=== PATIENT | female | born 1940 | race Caucasian/White ===

== ENCOUNTER 2017-01-11 15:20 | Inpatient (IN) ==
[2017-01-11] MEDS ORDERED: ATROPINE 1 MG/10 ML SYRINGE ONE (15:28)
[2017-01-11] MEDS ORDERED: AMIODARONE 150 MG/3 ML VIAL ONE (15:28)
[2017-01-11] MEDS ORDERED: SODIUM CHLORIDE 0.9% 500 ML IV STA (15:43)
[2017-01-11] MEDS ORDERED: MAGNESIUM SULF RIDER 2 GM in PREMIX 1 EACH IV PRN (15:53)
[2017-01-11] MEDS ORDERED: POTASSIUM CHLORIDE 20 MEQ TABLET PO PRN (15:53)
[2017-01-11 15:58] LABS: Basophils # 0.1 10*3/uL (0.0-0.2); Basophils % 0.4 % (0.0-0.8); Eosinophils % 0.3 % (0.00-10.9); Hematocrit 49.3 VOL% (35.7-47.0); Hemoglobin 17.1 GM/DL (12.0-16.0); Immature Granulocytes % 0.5 %; Immature Granulocytes Absolute 0.06 #; Lymphocytes % 18.1 % (21.3-54.2); Mean Corpuscular HGB Conc 34.7 GM/DL (32-36); Mean Corpuscular Hemoglobin 31 PG (27-34); Mean Corpuscular Volume 88.7 FL (87-102); Mean Platelet Volume 10.8 FL (9.6-12.0); Monocytes # 0.9 10*3/uL (0.11-0.8); Monocytes % 7.9 % (1.7-12.7); Neutrophils # 8.2 10*3/uL (1.4-7.4); Neutrophils % 72.8 % (38.7-73.9); Platelet Count 165 T/CUMM (130-400); Red Blood Count 5.56 MC/CUMM (3.8-5.5); Red Cell Distribution Width 12.4 % (9.3-17.3); White Blood Count 11.2 T/CUMM (4-12)
[2017-01-11] MEDS ORDERED: SODIUM CHLORIDE 0.45% 1,000 ML IV SCH (16:00)
--- NOTE | 2017-01-11 16:02 | Cardiology History & Physical ---
Assessment and Plan - Time spent with patient Time spent with patient: Greater than 30 minutes Time spent discussing smoking cessation with patient: 3 to 10 minutes (1) Second-degree heart block Status: Acute Assessment and plan: SEE PLAN OF CARE LISTED BELOW Current Visit: Yes (2) Torsades de pointes Status: Acute Assessment and plan: SEE PLAN OF CARE LISTED BELOW Current Visit: Yes (3) CAD (coronary artery disease) Status: Chronic Assessment and plan: SEE PLAN OF CARE LISTED BELOW Current Visit: Yes (4) Hypertension Status: Chronic Assessment and plan: SEE PLAN OF CARE LISTED BELOW Current Visit: Yes (5) Dyslipidemia Status: Chronic Assessment and plan: SEE PLAN OF CARE LISTED BELOW Current Visit: Yes (6) Hypokalemia Status: Acute Assessment and plan: SEE PLAN OF CARE LISTED BELOW Current Visit: Yes (7) Debilitated patient Status: Acute Assessment and plan: SEE PLAN OF CARE LISTED BELOW Current Visit: Yes (8) Tobacco use Status: Chronic Assessment and plan: SEE PLAN OF CARE LISTED BELOW Current Visit: Yes (9) Chronic pain Status: Chronic Assessment and plan: SEE PLAN OF CARE LISTED BELOW Current Visit: Yes (10) Spinal stenosis Status: Chronic Assessment and plan: SEE PLAN OF CARE LISTED BELOW Current Visit: Yes (11) Tobacco abuse Status: Chronic Assessment and plan: SEE PLAN OF CARE LISTED BELOW Current Visit: Yes History of Present Illness Chief complaint: syncope, vfib arrest 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 GONSALEZ BUT CURRENT APPOINTMENT WITH DR. HONG Patient is being seen in the emergency department Ms. Shelby,[id number], with risk factors significant for: age, known CAD, hypertension, dyslipidemia, tobaccoism, sedentary lifestyle. History of anxiety , chronic pain, hypokalemia. August 1994 CABG (DICKEY to LAD). Last cardiac catheterization May 07, 2012: Significant 2 vessel CAD (old occluded ostial LAD, new significant disease in the proximal RCA which required PCI with MING). DICKEY to LAD patent, EF 55%. Patient was brought to the ED after EMS was summoned for "seizure activity". Patient does not have a history of seizures. Telemetry strips from EMS reveal high degree block and bradycardia. Immediately after arrival to the ED, patient experienced ventricular fibrillation/torsades arrest. She received two precordial thumps which did not convert the patient however she spontaneously converted back to normal sinus rhythm. She was found to be hypokalemic ( potassium 3.0), magnesium WNL. She denies chest pain, heaviness or tightness. Family is at the bedside and agree that she has had been having no complaints of these type symptoms. She does have severe spinal stenosis and is non-ambulatory because of this condition. She previously saw Dr. Gonsalez but was dismissed from his care several years ago. She has not followed up with any healthcare provider with the exception of Dr. Almas Rosa for pain management. She does have a Morphine pump located in her abdomen and takes [place] 3 times daily as needed. She does acknowledge having "dizzy spells" for 3 days prior to arrival. Specifically, over the past 24 hours she had several spells of falling due to severe weakness, dizziness. And as the patient was being prepared for transport to the CCU, experienced numerous episodes of bradycardia induced torsades responding to to precordial thumps. She is being taken emergently to cardiac catheterization lab for pacemaker implantation by Dr. Hong. IMPRESSION/PLAN: 1. BRADYCARDIA INDUCED TORSADES - patient is being taken emergently to cardiac catheterization lab for pacemaker implant 2. SYNCOPE - most likely related to arrhythmia. 3. KNOWN CAD - see above for additional information related to her coronary anatomy and interventions. She does take Aspirin daily and did take this morning. Has not received Lovenox as she has no complaints of chest pain, troponin negative and she is being urgently taken to laboratory clerk. 4. HYPERTENSION - will adjust medications accordingly during hospital stay 5. DYSLIPIDEMIA - fasting lipid profile in the morning. LFTs today. Statin the same 6. HYPOKALEMIA - in the process of being replaced. Will continue to daily monitor and adjust meds accordingly 7. CHRONIC PAIN - patient does have a morphine pump. May consult pain management if needed for management. 8. NON-COMPLIANCE - prior history of noncompliance. Will reiterate to the family and to the patient importance of continued follow-up 9. SPINAL STENOSIS, SEVERE - patient is debilitated from her severe stenosis. Pain control is important. May be candidate for swing bed at discharge. 10. TOBACCO USE -greater than 5 minutes today was spent discussing the merits of tobacco cessation Home Medications Medication Instructions Recorded Confirmed Type Hydrocodone/Acetaminophen [[place] 1 each PO TID PRN 01/11/17 01/11/17 History 10-325 Tablet] Allergies Allergy/AdvReac Type Severity Reaction Status Date / Time pentazocine [From Talwin] Allergy Hallucinati Verified 01/11/17 15:50 ng Review of systems: REVIEW OF SYSTEMS: See HPI - Constitutional Constitutional: Present: Syncope. Fatigue. Absent: anorexia, night sweats - EENT Eyes: Absent: blurry vision, loss of vision, diplopia Ears: Absent: decreased hearing, ear pain, ear discharge - Cardiovascular Cardiovascular: Denies: chest pain with exertion, dyspnea, edema, palpitations. Absent: chest pain with deep breath - Respiratory Respiratory: Denies: BURG[place], cough. Absent: wheezing, hemoptysis, change in phlegm color - Gastrointestinal Gastrointestinal: Denies: constipation. Absent: abdominal pain, hematemesis, hematochezia, melena, change in bowel habits, nausea - Genitourinary Genitourinary: Absent: difficulty urinating, dysuria, urinary hesitancy, flank pain - Musculoskeletal Musculoskeletal: Present: back pain, muscle weakness absent: joint swelling, muscle cramps, muscle weakness - Neurological Neurological: Present: Poor gait with frequent falls. Dizziness. Absent: hemiparesis - Psychiatric Psychiatric: Present: Anxiety. Absent: depression, difficulty concentrating - Endocrine Endocrine: Present: fatigue. Absent: cold intolerance, heat intolerance, polyuria, polyphagia, polydipsia - Hematologic/Lymphatic Hematologic/Lymphatic: Present: easy bruising. Absent: easy bleeding -Integumentary Integumentary: Absent: lesions, rashes, skin breakdown Medical,Surgical,& Family Hx - Medical History Cardio: History of: CAD, Hypertension, [place], Cardiovascular Problems (bypass surgery) Psychological: History of: Anxiety Disorders Musculoskeletal: History of: Musculoskeletal Problems (chronic pain) - Social History Smoking Status: Current every day smoker Have you smoked in the last 12 months: Yes Frequency of Alcohol Use: None Type of Drug Use: None Marital Status: Lives With:: Spouse Functional capacity: wheelchair bound Cardiology Physical Exam - Constitutional Vitals: Vital Signs Temp Pulse Resp BP Pulse Ox 96.3 F L 69 16 125/89 96 01/11/17 15:30 01/11/17 15:30 01/11/17 15:30 01/11/17 15:30 01/11/17 15:30 Intake and Output 01/11/17 01/11/17 01/11/17 07:59 15:59 23:59 Other: Weight 58.967 kg Patient Weight 01/11/17 23:59 Weight 58.967 kg Exam: General: [Frail, debilitated female who appears to be very uncomfortable ] HEENT: [PERRL, normocephalic, atraumatic. Mucous membranes moist. No jaundice noted. Conjunctiva moist and clear, sclerae anicteric] Neck: No JVD/HJR, no thyromegaly or lymphadenopathy noted. No carotid bruit appreciated Cardiac: [Regular rate and rhythm.] [No obvious murmur rub or gallop.] Lungs: [Clear to auscultation without accessory muscle use to assist the respiratory pattern.] Oxygen in use via nasal cannula Abdomen: Soft, bowel sounds normoactive. Nontender and nondistended. No abdominal bruit or thrill noted. Musculoskeletal: No fluid collection. Decreased range of motion is noted. Severe deformity of the spine Noted Extremities: No clubbing, cyanosis noted. [ No edema noted.] Upper extremity pulses 2+. Lower extremity pulses 2+. Capillary refill less than 3 seconds. Skin: No unusual lesions or rashes. No skin breakdown appreciated. Neuro: Awake, alert and oriented 3. Moves all extremities well without hemiparesis or paralysis but overall muscle weakness noted. No essential tremor is appreciated. Result/EKG - Labs CBC & BMP: 01/11/17 15:42 01/11/17 15:43 Lab Results: I have reviewed the past 24 hour labs Labs: Laboratory Results - last 24 hr 01/11/17 15:42 WBC 11.2 RBC 5.56 H Hgb 17.1 H Hct 49.3 H MCV 88.7 MCH 31 MCHC 34.7 RDW 12.4 Plt Count 165 MPV 10.8 Neut % (Auto) 72.8 Lymph % (Auto) 18.1 L [place] % (Auto) 7.9 Eos % (Auto) 0.3 Baso % (Auto) 0.4 Neut # (Auto) 8.2 H Lymph # (Auto) 2.0 [place] # (Auto) 0.9 H Eos # (Auto) 0.0 Baso # (Auto) 0.1 Immature Gran % 0.5 Nucleated RBC % 0.0 Immature Gran # 0.06 Nucleated RBCs # 0.00 Immature Plt Fraction 0.0 - Diagnostic Findings Procedure: Chest x-ray: report reviewed by me - EKG EKG results: interpreted by oh EKG shows: bradycardia (Ventricular fibrillation/torsades. Second-degree block type)
[2017-01-11 16:03] LABS: INR 1.1; PT Patient Result 11.5 SECS
[2017-01-11 16:13] LABS: Albumin 3.9 G/DL (3.4-5.0); Bilirubin,Total 0.9 MG/DL (0.2-1.0); Calcium 9.3 MG/DL (8.5-10.1); Magnesium 2.6 MG/DL (1.8-2.4); Osmolality,Calculated 267.2 MOS/KG (273-304); Total Protein 8.2 G/DL (6.4-8.3); Troponin I Only 0.043 NG/ML (0.00-0.045)
[2017-01-11] MEDS ORDERED: POTASSIUM CHLORIDE 20 MEQ TABLET PO STA (16:30)
[2017-01-11 16:45] LABS: Apearance,Urine CLOUDY (Clear); Bacteria,Urine Many /HPF (Few); Bilirubin,Urine Negative (Negative); Blood, Urine Small mg/dL (Negative); Glucose,Urine (UA) Negative (Negative); Ketones,Urine 20 mg/dL (Negative); Mucus,Urine Occasional /LPF (Occasional); Nitrite,Urine Positive (Negative); Protein,Urine >=500 MG/DL; RBC,Urine 4 /HPF (0-4); Squamous Epithelial Cell,Urine Occasional /HPF (0-10); Urine Color Amber (Yellow); Urine Specific Gravity 1.014 (1.001-1.035); WBC,Urine 166 /HPF (0-6)
[2017-01-11] MEDS ORDERED: HYDROmorphone 2 MG/1 ML VIAL IV STA (16:48)
[2017-01-11 16:51] LABS: Bilirubin,Direct 0.3 MG/DL (0.0-0.20); Bilirubin,Indirect 0.6 MG/DL (0.0-1.0); Bilirubin,Total 0.9 MG/DL (0.2-1.0); Total Protein 8.7 G/DL (6.4-8.3)
[2017-01-11] MEDS ORDERED: HYDROmorphone 2 MG/1 ML VIAL ONE ×2 (16:51→17:08)
--- NOTE | 2017-01-11 16:53 | XRay Report ---
Portable chest Date: 01/11/2017 Clinical history: Code 9 Comparison: 09/10/2013 Technique: Portable AP supine chest Findings: The heart is normal in size with prior median sternotomy and persistent arterial calcifications. Chronic scarring in the lungs with progressive diffuse parenchymal findings. Artifactual densities limit the exam. Osteopenia with prior left shoulder replacement. Impression: Status post median sternotomy chronic scarring. Mild to moderate pulmonary edema with minimal atelectasis. PROCEDURE INTERPRETED AT [facility] DEPARTMENT OF RADIOLOGY Final Report Signed by: Dr. Latanya Alvarado
--- NOTE | 2017-01-11 16:54 | Emergency Department Note ---
Edilberto Henriquez Rolonda, am scribing for, and in the presence of, Mychal Cordova MD 16:50. Tasha Henriquez Phillip K, MD, personally performed the services described in this documentation, ascribed by Tiffanie Casanova in my presence, and it is both accurate and complete 654 . Arrival - Arrival Chief Complaint: Fall Stated Complaint: fall Time Seen by Provider: 01/11/17 15:42 - History of Present Illness HPI Narrative: This is a 76-year-old female presents the ED after having a syncopal episode at home. She has had several syncopal episodes over the last several weeks. Shortly after arrival in the ED the patient went into V. tach versus ventricular fibrillation. It appeared to be a torsade type picture. Before we were able to cardiovert her she converted on her own. She went into some type of block and then converted to a sinus rhythm with multiple PVCs. Patient denies any chest pain and only complains of back pain. Patient was seen by Dr. Lane in the ED. Before transfer to the CCU patient had several other episodes of V. tach which spontaneously converted. He was given amiodarone on arrival to the ED. Patient also received an amp of atropine when she was bradycardic. Allergies/Adverse Reactions: Allergies Allergy/AdvReac Type Severity Reaction Status Date / Time pentazocine [From Jethro] Allergy Hallucinati Verified 01/11/17 15:50 ng Home Medications: Home Medications Medication Instructions Recorded Confirmed Type Hydrocodone/Acetaminophen [Jadwin 1 each PO TID PRN 01/11/17 01/11/17 History 10-325 Tablet] Review of System - Review of System 12 point system: reviewed and no additional remarkable complaints except as stated - Review of System Constitutional: Absent: chills, fever Respiratory: Present: respiratory distress. Absent: cough Cardiovascular: Absent: chest pain, dyspnea on exertion Gastrointestinal: Present: as per HPI. Absent: abdominal pain, nausea, vomiting Neurological: Present: other (Syncope). Absent: headache Medical,Surgical,& Family Hx - Medical History Cardio: History of: [place], Cardiovascular Problems (bypass surgery) Musculoskeletal: History of: Musculoskeletal Problems (chronic pain) - Social History Smoking Status: Current every day smoker Exam Vital Signs: Vital Signs Temperature 96.3 F L 01/11/17 15:30 Pulse Rate 57 L 01/11/17 16:15 Respiratory Rate 20 01/11/17 16:15 Blood Pressure 167/79 01/11/17 16:15 O2 Sat by Pulse Oximetry 99 01/11/17 16:15 - General General appearance: alert, in distress - Head Head exam: Present: atraumatic - Eye Eye exam: Present: normal appearance, PERRL, EOMI - ENT ENT exam: Present: normal exam - Neck Neck exam: Present: normal inspection. Absent: lymphadenopathy - Chest Chest inspection: Present: normal inspection - Respiratory Respiratory exam: Present: wheezes (Slight expiratory wheezes bilaterally) - Cardiovascular Cardiovascular exam: Present: irregular rhythm. Absent: murmur, gallop - Abdominal Exam Abdominal exam: Present: soft, normal bowel sounds. Absent: distention, tenderness - Rectal Exam Rectal exam: Present: deferred - Extremities Exam Extremities exam: Present: normal inspection - Back Exam Back exam: Present: normal inspection - Neurological Exam Neurological exam: Present: alert, oriented X3, CN II-XII intact. Absent: motor sensory deficit - Psychiatric Psychiatric exam: Present: normal affect, anxious - Skin Skin exam: Present: warm, dry Course Course Narrative: Patient had several episodes of V. tach/V. fib while in the ED. Results - Labs CBC & BMP: 01/11/17 15:42 01/11/17 15:43 Lab Results: I have reviewed the patients labs - EKG EKG results: interpreted by MARSHALL, sinus rhythm (Ectopic premature complexes possible old anterior [place]) - Diagnostic Findings Procedure: Chest x-ray: image reviewed by me Critical Care Time Critical Care Time: Yes (60 minutes) Disposition Clinical Impression: Ventricular fibrillation, Tobacco abuse, Heart block Case discussed with: patient, patient's physician Disposition: Still a Patient Condition: Critical Additional Instructions: Admit to Dr. Lane.
[2017-01-11] MEDS ORDERED: AMIODARONE INJ 450 MG in DEXTROSE 5% 241 ML IV SCH (17:00)
[2017-01-11 17:02] LABS: Free T4 (Free Thyroxine) 1.71 NG/DL (0.76-1.46); Thyroid Stimulating Hormone 5.25 uIU/ml (0.358-3.74)
[2017-01-11] MEDS ORDERED: MIDAZOLAM 2 MG/2 ML VIAL ONE (17:16)
[2017-01-11] MEDS ORDERED: ceFAZolin 1,000 MG VIAL ONE (17:18)
[2017-01-11] MEDS ORDERED: LIDOCAINE 1%/EPI INJ 20 ML VIAL ONE (17:19)
[2017-01-11] MEDS ORDERED: POTASSIUM CHLORIDE INJ 10 MEQ in SODIUM CHLORIDE 0.9% 1,000 ML IV SCH (17:40)
[2017-01-11] MEDS ORDERED: TISSUE ADHESIVE 1 EACH APPLICATOR TOP ONE (17:43)
--- NOTE | 2017-01-11 17:51 | Cardiac Pacemaker ---
- Preoperative diagnosis Date of Procedure:: 01/11/17 Preoperative Diagnosis: Documented nonreversible symptomatic bradycardia due to , third degree atrioventricular block Procedure: Procedures performed 1. Percutaneous left subclavian venotomy with sheath placement 2. Placement of atrial and ventricular leads with threshold testing 3. Placement of dual-chamber permanent (note, this is an MRI compatible pacemaker system) The patient had symptomatic bradycardia and bradycardia-induced torsades due to high grade heart block and needed a dual-chamber pacemaker. After informed consent was obtained was taken to catheter prepped and draped in usual sterile manner. We used minimal sedation for this case. We placed 2 J-tipped wires in the left subclavian vein using a modified Seldinger technique in the usual fashion. With then a pocket approximately 2 cm below the left clavicular border using blunt and sharp dissection as well as electrocautery. We then pulled our leads into the pocket from below. Using safe sheaths, we placed a Medtronic 5076-52 centimeter ventricular lead into the right ventricular apex and secured it with a helical coil. Serial number on the ventricular lead is [id number]. Excellent capture and sensing thresholds were achieved. We then used a Medtronic 5076-45 centimeter lead in the atrium. Serial number on the atrial lead was [id number]. Excellent capture and sensing thresholds were achieved. After the sheaths had been removed, we sutured the leads to the pocket floor using Ethibond suture. We then rinsed the pocket with antibiotic solution and then connected the leads to a Medtronic Advisa DR MRI compatible pacemaker model [id number]. Serial number on the pacemaker is [id number]. After the device give been connected to the leads, it was placed in the pocket and sutured pocket floor with Ethibond suture. We then closed the pocket 2 layers using Vicryl suture. We then applied a topical adhesive followed by a dressing. There were no apparent complications during the procedure. The patient remained stable throughout the procedure and will now be transferred to her room for recovery. Surgeon / Physician: Vincenzo Hong Estimated blood loss: minimal Condition: stable Disposition: ICU/CCU - Medications / Follow-up
[2017-01-11] MEDS ORDERED: POTASSIUM CHLORIDE 20 MEQ TABLET PO ONE (19:42)
[2017-01-11] MEDS: LISINOPRIL 20 MG TABLET PO SCH (19:49)
[2017-01-11] MEDS: MORPHINE 2 MG/1 ML SYRINGE IV PRN ×2 (20:43→23:30)
[2017-01-11] MEDS: METOPROLOL TARTRATE 25 MG TABLET PO SCH (20:48)
--- NOTE | 2017-01-11 20:51 | XRay Report ---
Portable chest Exam date: 01/11/2017 809 PM Indication: Shortness of breath, cough Comparison: Same date at 3:36 PM Findings: Cardiomediastinal contours are stable with sternotomy wires and midline. Interval 2-lead pacemaker placement with leads in expected position. Development of interstitial edema and central pulmonary vasculature prominence. No acute osseous abnormalities. Visualized upper abdomen demonstrates no acute pathology. Impression: 1. Interval cardiac pacemaker placement 2. Development of pulmonary edema PROCEDURE INTERPRETED AT [facility] DEPARTMENT OF RADIOLOGY Final Report Signed by: Tessie Tracey MD
--- NOTE | 2017-01-11 22:16 | Order Completion Report ---
See report scanned to EMR
--- NOTE | 2017-01-11 22:28 | Order Completion Report ---
See report scanned to EMR
[2017-01-12] MEDS: cloNIDine 0.1 MG TABLET PO PRN ×2 (00:50→01:52)
[2017-01-12] MEDS: HYDROmorphone 2 MG/1 ML VIAL IV PRN ×4 (00:51→10:00)
--- NOTE | 2017-01-12 04:02 | Order Completion Report ---
See report scanned to EMR
--- NOTE | 2017-01-12 07:41 | XRay Report ---
Portable chest Date: 01/12/2017 Clinical history: Chest pain Comparison: 01/11/2017 Technique: Portable AP sitting chest Findings: The heart is normal in size with prior median sternotomy and stable left subclavian atrioventricular permanent pacemaker. Progressive diffuse parenchymal findings especially in the lower lung zones with small pleural effusions. Underlying chronic scarring. Prior left shoulder replacement with degenerative changes. Stable mediastinum. Impression: Status post median sternotomy with chronic scarring and left subclavian atrioventricular permanent pacemaker. Progressive pulmonary edema with small pleural effusions. PROCEDURE INTERPRETED AT [facility] DEPARTMENT OF RADIOLOGY Final Report Signed by: Dr. Latanya Alvarado
[2017-01-12 08:09] LABS: Basophils % 0.2 % (0.0-0.8); Hematocrit 43.3 VOL% (35.7-47.0); Hemoglobin 15.2 GM/DL (12.0-16.0); Immature Granulocytes % 0.6 %; Immature Granulocytes Absolute 0.06 #; Lymphocytes # 1.6 10*3/uL (1.4-4.0); Lymphocytes % 16.4 % (21.3-54.2); Mean Corpuscular HGB Conc 35.1 GM/DL (32-36); Mean Corpuscular Hemoglobin 31 PG (27-34); Mean Corpuscular Volume 89.5 FL (87-102); Mean Platelet Volume 10.7 FL (9.6-12.0); Monocytes # 0.6 10*3/uL (0.11-0.8); Monocytes % 6.3 % (1.7-12.7); Neutrophils # 7.3 10*3/uL (1.4-7.4); Neutrophils % 76.5 % (38.7-73.9); Platelet Count 120 T/CUMM (130-400); Red Blood Count 4.84 MC/CUMM (3.8-5.5); Red Cell Distribution Width 12.5 % (9.3-17.3); White Blood Count 9.6 T/CUMM (4-12)
[2017-01-12 08:35] LABS: Calcium 8.3 MG/DL (8.5-10.1); Magnesium 2.4 MG/DL (1.8-2.4); Osmolality,Calculated 262.4 MOS/KG (273-304); Potassium 4.2 MMOL/L (3.5-5.1)
[2017-01-12 08:38] LABS: Albumin 3.4 G/DL (3.4-5.0); Bilirubin,Total 1.2 MG/DL (0.2-1.0); Calcium 8.6 MG/DL (8.5-10.1); Osmolality,Calculated 262.4 MOS/KG (273-304); Potassium 4.2 MMOL/L (3.5-5.1); Risk Ratio 2.4; Total Protein 7.3 G/DL (6.4-8.3); VLDL CHOLESTEROL 16.4 MG/DL
[2017-01-12] MEDS: LISINOPRIL 20 MG TABLET PO SCH (08:46)
[2017-01-12] MEDS: METOPROLOL TARTRATE 25 MG TABLET PO SCH (08:46)
[2017-01-12 09:00] LABS: Free T4 (Free Thyroxine) 1.41 NG/DL (0.76-1.46); Thyroid Stimulating Hormone 2.6 uIU/ml (0.358-3.74)
--- NOTE | 2017-01-12 10:30 | Discharge Summary ---
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 Shelby,76WF, has risk factors significant for: age, known CAD, hypertension, dyslipidemia, tobaccoism, sedentary lifestyle. History of anxiety , chronic pain with Morphine pain pump, hypokalemia. August 1994 CABG (DICKEY to LAD ). Last cardiac catheterization May 07, 2012: Significant 2 vessel CAD ( old occluded ostial LAD, new significant disease in the proximal RCA which required PCI with MING). DICKEY to LAD patent, EF 55%. January 11, 2017 patient was brought to the ED after EMS was summoned for "seizure activity". (Patient does not have a history of seizures.) Telemetry strips from EMS reveal high degree block and bradycardia. Immediately after arrival to the ED, patient experienced ventricular fibrillation/torsades arrest. She received two precordial thumps which did not convert the patient however she spontaneously converted back to normal sinus rhythm. She was found to be hypokalemic (potassium 3.0), magnesium WNL. Potassium was replaced. She continued to have recurrent high degree block resulting in torsades and she was taken emergently to the cardiac catheterization lab by Dr. Hong with the following was performed: Procedures performed 1. Percutaneous left subclavian venotomy with sheath placement 2. Placement of atrial and ventricular leads with threshold testing 3. Placement of dual-chamber permanent (note, this is an MRI compatible pacemaker system) She tolerated the procedure well and without complication was returned to the ICU in stable condition. Overnight, she has done well. She looks and feels markedly better. She would like to be discharged home. She does have a urinary tract infection and we will treat this with Cipro 500 mg orally twice daily 7 days. I discussed this case with Dr. Hong he was seen and evaluated the patient as well this morning. She is stable for discharge. She does use a walker for stabilization when she attempts ambulation and Dr. Hong feels that this would be safe for her to continue to use both arms to stable herself. She will be given a follow-up appointment with Dr. Hong in approximately 1 week for pacemaker interrogation. She will need the following drawn at that time: BMP, magnesium, CBC. Having felt she has met maximal medical therapy, patient is being discharged home in stable condition. Discharge medications include the following: Aspirin 81 mg orally daily (new) Cipro 500 mg orally twice daily 7 days (new) Lisinopril 20 mg orally daily (new) Metoprolol tartrate 25 mg orally twice daily (new) Crestor 10 mg orally each evening (new) Pantoprazole 40 mg orally daily (new) Potassium chloride 20 mEq orally daily She will resume her other preadmission home medications which include her pain meds - Time spent with patient Time with patient DS: Greater than 30 minutes Time spent discussing smoking cessation with patient: 3 to 10 minutes Diagnosis - Discharge Diagnosis (1) Second-degree heart block Status: Acute (2) Torsades de pointes Status: Acute (3) CAD (coronary artery disease) Status: Chronic (4) Hypertension Status: Chronic (5) Dyslipidemia Status: Chronic (6) Hypokalemia Status: Acute (7) Debilitated patient Status: Acute (8) Tobacco use Status: Chronic (9) Chronic pain Status: Chronic (10) Spinal stenosis Status: Chronic (11) Tobacco abuse Status: Chronic Specialty Discharge - Follow Up or Referrals Follow up with: Vincenzo Hong MD [Physician] - (1 week F/U with interration. BMP, Mg, CBC, EKG at visit) Discharge Plan - Discharge Data Disposition: Disch To Home/Self Care Condition at Discharge: Stable Discharge Diet: heart healthy Activity: other (Post pacemaker expectation) Hygiene: other (Post pacemaker expectation) Weight Bearing at Discharge: other (Post pacemaker expectations) Driving: not until seen by doctor Contact your physician if you experience:: fever over 101, Difficulty voiding, Redness or swelling, Nausea/Vomiting, Shortness of breath, Bleeding, pain uncontrolled by pain medications - Discharge Medications New Ciprofloxacin Tab [Cipro Tab] 500 mg PO Q12HR #14 tablet Metoprolol Tartrate Tab [Lopressor Tab] 25 mg PO BID #60 tablet Potassium Chloride Cap/Tab [[place]] 20 meq PO DAILY #30 tablet Rosuvastatin [Crestor] 10 mg PO BEDTIME #30 tablet Lisinopril [Prinivil] 20 mg PO DAILY #30 tablet Continue Hydrocodone/Acetaminophen [[place] 10-325 Tablet] 1 each PO TID PRN PRN Reason: Pain Aspirin EC Tab 81 mg PO DAILY #30 - Follow Up or Referral - Forms/Instructions Instructions: Pacemaker (GEN), How to Stop Smoking (GEN), Heart Healthy Diet ( GEN), Bradycardia (GEN), Cigarette Smoking and Your Health, [employer]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 Hong. Please leave bandage on left chest wall until she is seen in clinic next week. Exam - Constitutional Vitals: Period Temp Pulse Resp BP Sys/Griffin Pulse Ox Last 24 Hr 96.3 F-98.3 F 55-107 10-22 112-183/63-114 92-99 Exam: General: [Frail, debilitated female who appears to be very uncomfortable ] HEENT: [PERRL, normocephalic, atraumatic. Mucous membranes moist. No jaundice noted. Conjunctiva moist and clear, sclerae anicteric] Neck: No JVD/HJR, no thyromegaly or lymphadenopathy noted. No carotid bruit appreciated Cardiac: [Regular rate and rhythm.] [No obvious murmur rub or gallop.] Left precordial area reveals dressing dry and intact, no edema Lungs: [Clear to auscultation without accessory muscle use to assist the respiratory pattern.] Not requiring oxygen. Abdomen: Soft, bowel sounds normoactive. Nontender and nondistended. No abdominal bruit or thrill noted. Musculoskeletal: No fluid collection. Decreased range of motion is noted. Severe deformity of the spine Noted Extremities: No clubbing, cyanosis noted. [ No edema noted.] Upper extremity pulses 2+. Lower extremity pulses 2+. Capillary refill less than 3 seconds. Skin: No unusual lesions or rashes. No skin breakdown appreciated. Neuro: Awake, alert and oriented 3. Moves all extremities well without hemiparesis or paralysis but overall muscle weakness noted. No essential tremor is appreciated. Discharge Results Procedures and tests throughout hospitalization: Pending Orders 01/11/17 Urine Culture Routine 01/11/17 18:50 MRSA Surveillence, Inf Control Routine Labs on day of discharge: Labs from last 24 hours 01/12/17 01/12/17 01/12/17 07:24 07:24 07:24 WBC 9.6 RBC 4.84 Hgb 15.2 Hct 43.3 MCV 89.5 MCH 31 MCHC 35.1 RDW 12.5 Plt Count 120 L D MPV 10.7 Neut % (Auto) 76.5 H Lymph % (Auto) 16.4 L Roberts % (Auto) 6.3 Eos % (Auto) 0.0 Baso % (Auto) 0.2 Neut # (Auto) 7.3 Lymph # (Auto) 1.6 Roberts # (Auto) 0.6 Eos # (Auto) 0.0 Baso # (Auto) 0.0 Immature Gran % 0.6 Nucleated RBC % 0.0 Immature Gran # 0.06 Nucleated RBCs # 0.00 Immature Plt Fraction 0.0 INR PT Patient/Control Mix Sodium 133 L 133 L Potassium 4.2 4.2 Chloride 96 L 96 L Carbon Dioxide 30 31 Anion Gap 11.2 10.2 BUN 7 7 Creatinine 0.70 0.70 GFR Calculation 80 80 BUN/Creatinine Ratio 10.00 10.00 Glucose 87 84 Calculated Osmolality 262.4 L 262.4 L Calcium 8.3 L 8.6 Magnesium 2.4 Total Bilirubin 1.20 H Direct Bilirubin Indirect Bilirubin AST 26 ALT 16 Alkaline Phosphatase 73 Troponin I Total Protein 7.3 Albumin 3.4 Globulin 3.9 H Albumin/Globulin Ratio 0.8 L Triglycerides 82 Cholesterol 125 LDL Cholesterol 65.0 VLDL Cholesterol 16.4 HDL Cholesterol 52 Heart Disease Risk Ratio 2.40 Free T4 TSH 3rd Generation Urine Color Urine Appearance Urine pH Ur Specific [place] Urine Protein Urine Glucose (UA) Urine Ketones Urine Blood Urine Nitrate Urine Bilirubin Urine Urobilinogen Urine Leukocytes Urine RBC Urine WBC Urine WBC Clumps Ur Squamous Epith Cells Urine Bacteria Urine Mucus Ur Culture Indicated? 01/12/17 01/11/17 01/11/17 07:15 22:57 19:32 WBC RBC Hgb Hct MCV MCH MCHC RDW Plt Count MPV Neut % (Auto) Lymph % (Auto) Roberts % (Auto) Eos % (Auto) Baso % (Auto) Neut # (Auto) Lymph # (Auto) Roberts # (Auto) Eos # (Auto) Baso # (Auto) Immature Gran % Nucleated RBC % Immature Gran # Nucleated RBCs # Immature Plt Fraction INR PT Patient/Control Mix Sodium Potassium Chloride Carbon Dioxide Anion Gap BUN Creatinine GFR Calculation BUN/Creatinine Ratio Glucose Calculated Osmolality Calcium Magnesium Total Bilirubin Direct Bilirubin Indirect Bilirubin AST ALT Alkaline Phosphatase Troponin I 0.341 H D 0.227 H D Total Protein Albumin Globulin Albumin/Globulin Ratio Triglycerides Cholesterol LDL Cholesterol VLDL Cholesterol HDL Cholesterol Heart Disease Risk Ratio Free T4 1.41 TSH 3rd Generation 2.600 Urine Color Urine Appearance Urine pH Ur Specific [place] Urine Protein Urine Glucose (UA) Urine Ketones Urine Blood Urine Nitrate Urine Bilirubin Urine Urobilinogen Urine Leukocytes Urine RBC Urine WBC Urine WBC Clumps Ur Squamous Epith Cells Urine Bacteria Urine Mucus Ur Culture Indicated? 01/11/17 01/11/17 01/11/17 16:10 15:43 15:43 WBC RBC Hgb Hct MCV MCH MCHC RDW Plt Count MPV Neut % (Auto) Lymph % (Auto) Roberts % (Auto) Eos % (Auto) Baso % (Auto) Neut # (Auto) Lymph # (Auto) Roberts # (Auto) Eos # (Auto) Baso # (Auto) Immature Gran % Nucleated RBC % Immature Gran # Nucleated RBCs # Immature Plt Fraction INR PT Patient/Control Mix Sodium Potassium Chloride Carbon Dioxide Anion Gap BUN Creatinine GFR Calculation BUN/Creatinine Ratio Glucose Calculated Osmolality Calcium Magnesium Total Bilirubin 0.90 Direct Bilirubin 0.300 H Indirect Bilirubin 0.6 AST 24 ALT 15 Alkaline Phosphatase 92 Troponin I Total Protein 8.7 H Albumin 4.0 Globulin Albumin/Globulin Ratio Triglycerides Cholesterol LDL Cholesterol VLDL Cholesterol HDL Cholesterol Heart Disease Risk Ratio Free T4 1.71 H TSH 3rd Generation 5.250 H Urine Color Marisa Urine Appearance Cloudy Urine pH 7.0 Ur Specific [place] 1.014 Urine Protein >=500 Urine Glucose (UA) Negative Urine Ketones 20 Urine Blood Small Urine Nitrate Positive H Urine Bilirubin Negative Urine Urobilinogen 4.0 H Urine Leukocytes Moderate H Urine RBC 4 Urine WBC 166 Urine WBC Clumps Few Ur Squamous Epith Cells Occasional Urine Bacteria Many Urine Mucus Occasional Ur Culture Indicated? Results to follow 01/11/17 01/11/17 01/11/17 15:43 15:42 15:42 WBC 11.2 RBC 5.56 H Hgb 17.1 H Hct 49.3 H MCV 88.7 MCH 31 MCHC 34.7 RDW 12.4 Plt Count 165 MPV 10.8 Neut % (Auto) 72.8 Lymph % (Auto) 18.1 L Roberts % (Auto) 7.9 Eos % (Auto) 0.3 Baso % (Auto) 0.4 Neut # (Auto) 8.2 H Lymph # (Auto) 2.0 Roberts # (Auto) 0.9 H Eos # (Auto) 0.0 Baso # (Auto) 0.1 Immature Gran % 0.5 Nucleated RBC % 0.0 Immature Gran # 0.06 Nucleated RBCs # 0.00 Immature Plt Fraction 0.0 INR 1.1 PT Patient/Control Mix 11.5 Sodium 134 L Potassium 3.0 L Chloride 95 L Carbon Dioxide 27 Anion Gap 15.0 BUN 8 Creatinine 0.90 GFR Calculation 57 BUN/Creatinine Ratio 8.00 Glucose 130 H Calculated Osmolality 267.2 L Calcium 9.3 Magnesium 2.6 H Total Bilirubin 0.90 Direct Bilirubin Indirect Bilirubin AST 22 ALT 17 Alkaline Phosphatase 88 Troponin I 0.043 Total Protein 8.2 Albumin 3.9 Globulin 4.3 H Albumin/Globulin Ratio 0.9 L Triglycerides Cholesterol LDL Cholesterol VLDL Cholesterol HDL Cholesterol Heart Disease Risk Ratio Free T4 TSH 3rd Generation Urine Color Urine Appearance Urine pH Ur Specific [place] Urine Protein Urine Glucose (UA) Urine Ketones Urine Blood Urine Nitrate Urine Bilirubin Urine Urobilinogen Urine Leukocytes Urine RBC Urine WBC Urine WBC Clumps Ur Squamous Epith Cells Urine Bacteria Urine Mucus Ur Culture Indicated? Preliminary micro results at discharge 01/11/17 Unknown Urine Culture - Preliminary Urine,Voided Gram Negative Rods - Imaging and Cardiology Cardiology Procedure: report reviewed by me Procedure: Chest x-ray: report reviewed by me DS: Provider Date of admission: 01/11/17 16:56 Primary care physician: . No PCP Attending physician on admission: Tyrel Lane MD Consults: 01/11/17 15:54 Consult to Cardiac Rehabilitation [CONS] Routine Reason for Cardiac Rehabilitation: Risk Factor Modification Other Consult Comment: Evaluate and recommend 01/11/17 17:48 Consult to Physician [CONS] Routine Comment: Assistance with chronic pain mgmt Consulting Provider: Almas Rosa Consulting Provider Notified: Yes Consult to Specialist Group: Pain Management Person Notified: GAVIN Date Notified: 01/12/17 Time Notified: 08:25 Discharging clinician: Gaby Emerson NP Expected date of discharge: 01/12/17
[2017-01-12] MEDS ORDERED: POTASSIUM CHLORIDE 20 MEQ TABLET PO SCH (11:00)
[2017-01-12] MEDS ORDERED: ASPIRIN EC 81 MG TABLET PO SCH (11:00)
[2017-01-12] MEDS ORDERED: CIPROFLOXACIN 500 MG TABLET PO SCH (11:00)
--- NOTE | 2017-01-12 11:32 | Pain Management Consult Note ---
Assessment and Plan (1) Chronic pain Status: Chronic Assessment and plan: Post op pain is stable. She is sitting up and laughing but still requesting dilaudid IV when she can. Indications for additional pain medicine over her chronic back pain are not indicated, she is on stable spinal morhine 4.5 mg per day, and [place] bid - tid which is available to her. She is scheduled for discharge home today. Current Visit: Yes History of Present Illness Chief complaint: new pacemaker History of present illness: Ms. Lopez is a 76 year old female with Vtach requiring implant of dual chamber MRI compatible pacer. Home Medications Medication Instructions Recorded Confirmed Type Hydrocodone/Acetaminophen [[place] 1 each PO TID PRN 01/11/17 01/11/17 History 10-325 Tablet] Aspirin EC Tab 81 mg PO DAILY #30 01/12/17 Rx Ciprofloxacin Tab [Cipro Tab] 500 mg PO Q12HR #14 tablet 01/12/17 Rx Lisinopril [Prinivil] 20 mg PO DAILY #30 tablet 01/12/17 Rx Metoprolol Tartrate Tab [Lopressor 25 mg PO BID #60 tablet 01/12/17 Rx Tab] Potassium Chloride Cap/Tab [K Dur] 20 meq PO DAILY #30 tablet 01/12/17 Rx Rosuvastatin [Crestor] 10 mg PO BEDTIME #30 tablet 01/12/17 Rx Allergies Allergy/AdvReac Type Severity Reaction Status Date / Time pentazocine [From Jethro] Allergy Hallucinati Verified 01/11/17 15:50 ng Medical,Surgical,& Family Hx - Medical History Cardio: History of: Cardiac Dysrhythmia, CAD, Hypertension, [place], Pacemaker, Cardiovascular Problems (bypass surgery) Psychological: History of: Anxiety Disorders Neurology: History of: Seizures Respiratory: History of: COPD, Pneumonia Gastrointestinal: History of: Liver Problems (hepatitis) Musculoskeletal: History of: Back/Neck Problems (chronic back pain), Musculoskeletal Problems (chronic pain) - Surgical History Abdominal Surgeries: Surgical HX of: Colonoscopy - Family History Family History: Reports;: Family Heart Disease (heart attack), Family Hypertension (Parents both had hypertension) - Social History Smoking Status: Current every day smoker Frequency of Alcohol Use: None Type of Drug Use: None Exam - Constitutional Vitals: Period Temp Pulse Resp BP Sys/Griffin Pulse Ox Last 24 Hr 96.3 F-98.3 F 55-107 10 112-183/63-114 92-99 Results - Labs CBC & BMP: 01/12/17 07:24 01/12/17 07:24 Specialty Discharge - Follow Up or Referrals Follow up with: Vincenzo Hong MD [Physician] - (1 week F/U with interration. BMP, Mg, CBC, EKG at visit)
[2017-01-12 12:53] VITALS: BP 113/87
--- NOTE | 2017-01-12 13:07 | Order Completion Report ---
See report scanned to EMR
--- NOTE | 2017-01-12 13:07 | Order Completion Report ---
See report scanned to EMR
[2017-01-12] MEDS ORDERED: INFLUENZA VIRUS VACCINE 0.5 ML SYRINGE IM ONE (14:43)
[2017-01-12] MEDS ORDERED: POTASSIUM CHLORIDE 20 MEQ TABLET PO ONE (19:06)
[2017-01-12] MEDS ORDERED: ROSUVASTATIN 10 MG TABLET PO SCH (21:00)
== END 2017-01-12 15:31 | disposition home or self-care (01) | DRG 243 ==
LOC: EDUNIT# → EDBD → N.ED 15:20 → N.ICU 16:54 → N.EDINP 16:56 → N.ICU 17:12
PROVIDERS: ADMIT Internal Medicine Cardiovascular Disease; ATTEND Internal Medicine Cardiovascular Disease

== ENCOUNTER 2017-02-08 12:51 | Observation (INO) ==
[~2017-02-08 12:51] MED LIST: ETOMIDATE 20 MG/10 ML VIAL IV ONE; GLYCOPYRROLATE 0.4 MG/2 ML VIAL ONE; NEOSTIGMINE 10 MG/10 ML VIAL ONE; SEVOFLURANE 1 UNIT/15 MINUTE INH ONE
[2017-02-08 13:48] LABS: Basophils % 0.5 % (0.0-0.8); Eosinophils % 0.4 % (0.00-10.9); Hematocrit 44.6 VOL% (35.7-47.0); Hemoglobin 15.8 GM/DL (12.0-16.0); Immature Granulocytes % 0.3 %; Immature Granulocytes Absolute 0.02 #; Lymphocytes # 1.4 10*3/uL (1.4-4.0); Lymphocytes % 17.9 % (21.3-54.2); Mean Corpuscular HGB Conc 35.4 GM/DL (32-36); Mean Corpuscular Hemoglobin 31 PG (27-34); Mean Corpuscular Volume 87.8 FL (87-102); Monocytes # 0.6 10*3/uL (0.11-0.8); Monocytes % 7.3 % (1.7-12.7); Neutrophils # 5.8 10*3/uL (1.4-7.4); Neutrophils % 73.6 % (38.7-73.9); Platelet Count 145 T/CUMM (130-400); Red Blood Count 5.08 MC/CUMM (3.8-5.5); Red Cell Distribution Width 12.6 % (9.3-17.3); White Blood Count 7.8 T/CUMM (4-12)
[2017-02-08 14:24] LABS: Alanine Aminotransferase 14 U/L (13-56); Albumin 3.7 G/DL (3.4-5.0); Alkaline Phosphatase 88 U/L (45-117); Aspartate Amino Transferase 16 U/L (0-37); Blood Urea Nitrogen 9 MG/DL (7-18); Glucose 121 MG/DL (74-106); Osmolality,Calculated 265.4 MOS/KG (273-304); Potassium 4.3 MMOL/L (3.5-5.1); Sodium 133 MMOL/L (136-145); Total Protein 7.7 G/DL (6.4-8.3); Troponin I Only < 0.015 NG/ML (0.00-0.045)
[2017-02-08] MEDS ORDERED: SODIUM CHLORIDE 0.9% 1,000 ML IV STA (14:38)
[2017-02-08] MEDS ORDERED: ONDANSETRON 4 MG/2 ML VIAL IV PRN (14:40)
[2017-02-08] MEDS ORDERED: ACETAMINOPHEN 325 MG TABLET PO PRN (14:40)
[2017-02-08] MEDS ORDERED: MAGNESIUM SULF RIDER 2 GM in PREMIX 1 EACH IV PRN (14:40)
[2017-02-08] MEDS ORDERED: fentaNYL 100 MCG/2 ML VIAL ONE ×2 (14:40→16:43)
[2017-02-08] MEDS ORDERED: MIDAZOLAM 2 MG/2 ML VIAL ONE ×2 (14:40→14:52)
[2017-02-08] MEDS ORDERED: ZALEPLON 5 MG CAPSULE PO PRN (14:40)
[2017-02-08] MEDS ORDERED: MAGNESIUM SULF RIDER 4 GM in PREMIX 1 EACH IV PRN (14:40)
[2017-02-08] MEDS ORDERED: DOCUSATE SODIUM 100 MG CAPSULE PO PRN (14:40)
[2017-02-08] MEDS ORDERED: LIDOCAINE 1% 20 ML VIAL ONE ×2 (14:42→15:23)
[2017-02-08] MEDS ORDERED: HEPARIN/NACL 0.9% 2 UNITS/ML 500 ML IV ONE ×2 (14:42→15:23)
[2017-02-08] MEDS ORDERED: VANCOMYCIN 500 MG VIAL ONE ×2 (15:32→15:33)
[2017-02-08] MEDS ORDERED: TISSUE ADHESIVE 1 EACH APPLICATOR TOP ONE (16:09)
[2017-02-08] MEDS ORDERED: SEVOFLURANE 1 UNIT/15 MINUTE INH ONE (16:43)
[2017-02-08] MEDS ORDERED: ONDANSETRON 4 MG/2 ML VIAL ONE (16:44)
[2017-02-08] MEDS ORDERED: INFLUENZA VIRUS VACCINE 0.5 ML SYRINGE IM ONE (16:53)
[2017-02-08] MEDS: SULFAMETHOX/TRIMETHOPRIM 800-160 MG TABLET PO SCH (20:34)
[2017-02-08] MEDS: METOPROLOL TARTRATE 25 MG TABLET PO SCH (20:37)
[2017-02-08] MEDS ORDERED: ROSUVASTATIN 10 MG TABLET PO SCH (21:00)
[2017-02-09 07:38] LABS: Basophils % 0.4 % (0.0-0.8); Eosinophils # 0.1 10*3/uL (0.0-0.87); Eosinophils % 1.2 % (0.00-10.9); Hematocrit 40.2 VOL% (35.7-47.0); Hemoglobin 14.2 GM/DL (12.0-16.0); Immature Granulocytes % 0.3 %; Immature Granulocytes Absolute 0.02 #; Lymphocytes # 2.5 10*3/uL (1.4-4.0); Lymphocytes % 34.4 % (21.3-54.2); Mean Corpuscular HGB Conc 35.3 GM/DL (32-36); Mean Corpuscular Hemoglobin 31 PG (27-34); Mean Corpuscular Volume 88.2 FL (87-102); Mean Platelet Volume 9.8 FL (9.6-12.0); Monocytes # 0.6 10*3/uL (0.11-0.8); Monocytes % 8.7 % (1.7-12.7); Platelet Count 135 T/CUMM (130-400); Red Blood Count 4.56 MC/CUMM (3.8-5.5); Red Cell Distribution Width 12.6 % (9.3-17.3); White Blood Count 7.2 T/CUMM (4-12)
[2017-02-09 08:06] LABS: Calcium 8.6 MG/DL (8.5-10.1); Magnesium 2.2 MG/DL (1.8-2.4); Potassium 4.1 MMOL/L (3.5-5.1)
[2017-02-09 08:29] VITALS: BP 143/79
[2017-02-09] MEDS ORDERED: POTASSIUM CHLORIDE 20 MEQ TABLET PO SCH (09:00)
[2017-02-09] MEDS ORDERED: PANTOPRAZOLE 40 MG TABLET PO SCH (09:00)
[2017-02-09] MEDS ORDERED: LISINOPRIL 20 MG TABLET PO SCH (09:00)
[2017-02-09] MEDS ORDERED: ASPIRIN EC 81 MG TABLET PO SCH (09:00)
[2017-02-09] MEDS: SULFAMETHOX/TRIMETHOPRIM 800-160 MG TABLET PO SCH (09:09)
[2017-02-09] MEDS: METOPROLOL TARTRATE 25 MG TABLET PO SCH (09:09)
== END 2017-02-09 11:40 | disposition home or self-care (01) ==
LOC: EDBD → EDUNIT# → N.EDINP 12:51 → N.ED 12:51 → N.EDINP 14:40 → N.TELEN 16:41
PROVIDERS: ADMIT Internal Medicine Interventional Cardiology; ATTEND Internal Medicine Interventional Cardiology

== ENCOUNTER 2017-12-14 03:17 | Inpatient (IN) ==
[2017-12-14] MEDS ORDERED: SODIUM CHLORIDE 0.9% 1,000 ML IV STA ×2 (03:43→04:46)
[2017-12-14] MEDS ORDERED: NOREPINEPHRINE 8 MG in SODIUM CHLORIDE 0.9% 242 ML IV PRN (04:46)
[2017-12-14 06:02] LABS: Basophils # 0.1 10*3/uL (0.0-0.2); Basophils % 0.3 % (0.0-0.8); Hematocrit 46.6 VOL% (35.7-47.0); Immature Granulocytes % 0.8 %; Immature Granulocytes Absolute 0.16 #; Lymphocytes # 1.3 10*3/uL (1.4-4.0); Lymphocytes % 6.3 % (21.3-54.2); Mean Corpuscular HGB Conc 34.3 GM/DL (32-36); Mean Corpuscular Hemoglobin 32 PG (27-34); Mean Corpuscular Volume 92.8 FL (87-102); Mean Platelet Volume 10.1 FL (9.6-12.0); Monocytes # 1.8 10*3/uL (0.11-0.8); Neutrophils % 83.6 % (38.7-73.9); Platelet Count 163 T/CUMM (130-400); Red Blood Count 5.02 MC/CUMM (3.8-5.5); Red Cell Distribution Width 12.7 % (9.3-17.3); White Blood Count 20.4 T/CUMM (4-12)
[2017-12-14 06:24] LABS: Band Neutrophils 7 % (0-10); Hypochromasia 1+; Lymphocytes 3 % (20-55); Platelet Estimate Adequate; Segmented Neutrophils 83 % (50-85); Total Cells Counted 100
[2017-12-14 06:27] LABS: Apearance,Urine CLEAR (Clear); Bilirubin,Urine Negative (Negative); Blood, Urine Negative (Negative); Glucose,Urine (UA) Negative (Negative); Ketones,Urine Negative (Negative); Mucus,Urine Occasional /LPF (Occasional); Nitrite,Urine Negative (Negative); Protein,Urine Negative; RBC,Urine 1 /HPF (0-4); Squamous Epithelial Cell,Urine Occasional /HPF (0-10); Urine Color Yellow (Yellow); Urine Specific Gravity 1.009 (1.001-1.035); Urine Urobilinogen < 2.0 EU/DL (0.2-1.0); WBC,Urine <1 /HPF (0-6)
[2017-12-14 06:29] LABS: Lactic Acid 5.8 MMOL/L (0.4-2.0)
[2017-12-14] MEDS ORDERED: cefTRIAXone 1,000 MG in SODIUM CHLORIDE 0.9% 100 ML IV STA (06:32)
[2017-12-14 06:33] LABS: Albumin 3.5 G/DL (3.4-5.0); Bilirubin,Total 0.6 MG/DL (0.2-1.0); Calcium 9.3 MG/DL (8.5-10.1); Osmolality,Calculated 278.4 MOS/KG (273-304); Potassium 3.3 MMOL/L (3.5-5.1); Total Protein 7.3 G/DL (6.4-8.3)
[2017-12-14] MEDS ORDERED: ONDANSETRON 4 MG TABLET PO PRN (08:47)
[2017-12-14] MEDS ORDERED: PROMETHAZINE 25 MG TABLET PO PRN (08:47)
[2017-12-14] MEDS ORDERED: POLYETHYLENE GLYCOL POWDER 17 GM PACK PO PRN (08:47)
[2017-12-14] MEDS ORDERED: ONDANSETRON 4 MG/2 ML VIAL IV PRN (15:38)
[2017-12-14] MEDS: POTASSIUM CHLORIDE 20 MEQ TABLET PO SCH ×3 (16:03→21:53)
[2017-12-14] MEDS: ASPIRIN EC 81 MG TABLET PO SCH (16:04)
[2017-12-14] MEDS: SODIUM CHLORIDE 0.9% 1,000 ML IV SCH (16:04)
[2017-12-14] MEDS: PANTOPRAZOLE 40 MG TABLET PO SCH (16:12)
[2017-12-14] MEDS: CHOLESTYRAMINE/ASPARTAME 4 GM PACK PO SCH ×2 (16:12→20:14)
[2017-12-14] MEDS: ENOXAPARIN 30 MG/0.3 ML SYRINGE SUBCUT SCH (16:13)
[2017-12-14] MEDS: ROSUVASTATIN 10 MG TABLET PO SCH (20:13)
[2017-12-15] MEDS: SODIUM CHLORIDE 0.9% 1,000 ML IV SCH ×3 (00:56→20:41)
[2017-12-15] MEDS: POTASSIUM CHLORIDE 20 MEQ TABLET PO SCH ×2 (02:04→08:46)
[2017-12-15 05:21] LABS: Basophils % 0.2 % (0.0-0.8); Eosinophils # 0.1 10*3/uL (0.0-0.87); Eosinophils % 0.5 % (0.00-10.9); Hematocrit 34.2 VOL% (35.7-47.0); Hemoglobin 11.7 GM/DL (12.0-16.0); Immature Granulocytes % 0.6 %; Immature Granulocytes Absolute 0.09 #; Lymphocytes # 3.4 10*3/uL (1.4-4.0); Lymphocytes % 23.7 % (21.3-54.2); Mean Corpuscular HGB Conc 34.2 GM/DL (32-36); Mean Corpuscular Hemoglobin 31 PG (27-34); Mean Corpuscular Volume 91.4 FL (87-102); Mean Platelet Volume 10.4 FL (9.6-12.0); Monocytes % 7.3 % (1.7-12.7); NRBC # 0.02 10*3/uL; Neutrophils # 9.7 10*3/uL (1.4-7.4); Neutrophils % 67.7 % (38.7-73.9); Platelet Count 130 T/CUMM (130-400); Red Blood Count 3.74 MC/CUMM (3.8-5.5); Red Cell Distribution Width 12.9 % (9.3-17.3); White Blood Count 14.3 T/CUMM (4-12)
[2017-12-15 05:32] LABS: Blood Urea Nitrogen 11 MG/DL (7-18); Calcium 8.1 MG/DL (8.5-10.1); Glucose 133 MG/DL (74-106); Osmolality,Calculated 283.1 MOS/KG (273-304); Sodium 142 MMOL/L (136-145); Troponin I < 0.015 NG/ML (0.00-0.045)
[2017-12-15] MEDS: ASPIRIN EC 81 MG TABLET PO SCH (08:45)
[2017-12-15] MEDS: CHOLESTYRAMINE/ASPARTAME 4 GM PACK PO SCH ×2 (08:45→20:41)
[2017-12-15] MEDS: PANTOPRAZOLE 40 MG TABLET PO SCH (08:45)
[2017-12-15] MEDS: MORPHINE PCA 30 MG/30 ML SYRINGE IV SCH (13:57)
[2017-12-15] MEDS: ENOXAPARIN 30 MG/0.3 ML SYRINGE SUBCUT SCH (16:56)
[2017-12-15] MEDS: ROSUVASTATIN 10 MG TABLET PO SCH (20:41)
[2017-12-16 06:28] LABS: Basophils % 0.3 % (0.0-0.8); Eosinophils # 0.1 10*3/uL (0.0-0.87); Eosinophils % 1.1 % (0.00-10.9); Hematocrit 32.2 VOL% (35.7-47.0); Hemoglobin 11.1 GM/DL (12.0-16.0); Immature Granulocytes % 0.3 %; Immature Granulocytes Absolute 0.02 #; Lymphocytes # 1.9 10*3/uL (1.4-4.0); Lymphocytes % 29.4 % (21.3-54.2); Mean Corpuscular HGB Conc 34.5 GM/DL (32-36); Mean Corpuscular Hemoglobin 32 PG (27-34); Mean Corpuscular Volume 93.1 FL (87-102); Mean Platelet Volume 10.7 FL (9.6-12.0); Monocytes # 0.6 10*3/uL (0.11-0.8); Monocytes % 8.7 % (1.7-12.7); Neutrophils % 60.2 % (38.7-73.9); Platelet Count 101 T/CUMM (130-400); Red Blood Count 3.46 MC/CUMM (3.8-5.5); Red Cell Distribution Width 12.7 % (9.3-17.3); White Blood Count 6.6 T/CUMM (4-12)
[2017-12-16 06:53] LABS: Calcium 8.1 MG/DL (8.5-10.1); Osmolality,Calculated 275.4 MOS/KG (273-304); Potassium 4.3 MMOL/L (3.5-5.1)
[2017-12-16 08:47] VITALS: BP 121/58
[2017-12-16] MEDS: CHOLESTYRAMINE/ASPARTAME 4 GM PACK PO SCH (10:13)
[2017-12-16] MEDS: ASPIRIN EC 81 MG TABLET PO SCH (10:14)
[2017-12-16] MEDS: PANTOPRAZOLE 40 MG TABLET PO SCH (10:14)
[2017-12-16] MEDS: SODIUM CHLORIDE 0.9% 1,000 ML IV SCH (10:14)
[2017-12-16] MEDS: POTASSIUM CHLORIDE 20 MEQ TABLET PO SCH (10:14)
[2017-12-17] MEDS ORDERED: PNEUMOCOCCAL VACCINE (13 VALENT) 0.5 ML SYRINGE IM ONE (15:58)
== END 2017-12-16 11:30 | disposition home or self-care (01) | DRG 315 ==
LOC: EDUNIT# → EDBD → N.ED 03:17 → SUATTDRO 08:51 → N.EDINP 08:51 → N.ICU 14:50 → N.TELEN 12-15 13:04
PROVIDERS: ADMIT Internal Medicine; ATTEND Internal Medicine

== ENCOUNTER 2020-09-12 11:09 | Inpatient (IN) ==
[2020-09-12] MEDS ORDERED: SODIUM CHLORIDE 0.9% 500 ML IV STA (11:27)
[2020-09-12 11:58] LABS: Basophils % 0.1 % (0.0-0.8); Immature Granulocytes % 0.6 %; Immature Granulocytes Absolute 0.08 #; Lymphocytes # 0.5 10*3/uL (1.4-4.0); Mean Corpuscular HGB Conc 34.2 GM/DL (32-36); Mean Corpuscular Volume 90.7 FL (87-102); Mean Platelet Volume 9.3 FL (9.6-12.0); Monocytes % 7.2 % (1.7-12.7); Neutrophils % 88.1 % (38.7-73.9); Platelet Count 162 T/CUMM (130-400); Red Blood Count 4.19 MC/CUMM (3.8-5.5); Red Cell Distribution Width 12.8 % (9.3-17.3); White Blood Count 13.6 T/CUMM (4-12)
[2020-09-12 12:08] LABS: INR 1.1
[2020-09-12 12:36] LABS: Albumin 3.2 G/DL (3.4-5.0); Bilirubin,Total 0.8 MG/DL (0.2-1.0); Osmolality,Calculated 267.7 MOS/KG (273-304); Potassium 3.6 MMOL/L (3.5-5.1); Total Protein 7.2 G/DL (6.4-8.2)
[2020-09-12] MEDS ORDERED: ASPIRIN 325 MG TABLET PO STA (12:50)
[2020-09-12] MEDS ORDERED: ACETAMINOPHEN 325 MG TABLET PO ONE (12:50)
[2020-09-12 12:59] LABS: Lymphocytes 1 % (20-55); Platelet Estimate Adequate; Segmented Neutrophils 88 % (50-85); Total Cells Counted 100
[2020-09-12 13:25] LABS: Bilirubin,Urine Negative (Negative); Blood, Urine Large mg/dL (Negative); Glucose,Urine (UA) Negative (Negative); Ketones,Urine 20 mg/dL (Negative); Mucus,Urine Occasional /LPF (Occasional); Nitrite,Urine Negative (Negative); Protein,Urine 100 MG/DL; RBC,Urine 16 /HPF (0-4); Squamous Epithelial Cell,Urine Occasional /HPF (0-10); Urine Appearance CLOUDY (Clear); Urine Color Yellow (Yellow); Urine Specific Gravity 1.012 (1.001-1.035); Urine Urobilinogen < 2.0 EU/DL (0.2-1.0)
[2020-09-12] MEDS ORDERED: AZITHROMYCIN INJ 500 MG in SODIUM CHLORIDE 0.9% 250 ML IV STA (13:32)
[2020-09-12] MEDS ORDERED: cefTRIAXone 1,000 MG in SODIUM CHLORIDE 0.9% 100 ML IV STA (13:32)
[2020-09-12] MEDS ORDERED: SODIUM CHLORIDE 0.9% 1,000 ML IV STA (13:35)
[2020-09-12] MEDS ORDERED: DEXTROSE 50% 25 GM/50 ML VIAL IV PRN (14:10)
[2020-09-12] MEDS ORDERED: GLUCAGON 1 MG VIAL IM PRN (14:10)
[2020-09-12] MEDS: cefTRIAXone 1,000 MG in SODIUM CHLORIDE 0.9% 100 ML IV SCH (15:22)
[2020-09-12] MEDS: SODIUM CHLOR 0.9% KCL 20 MEQ 20 MEQ/1,000 ML BAG IV SCH (15:49)
[2020-09-12] MEDS: PANTOPRAZOLE 40 MG TABLET PO SCH (15:49)
[2020-09-12] MEDS: ENOXAPARIN 40 MG/0.4 ML SYRINGE SUBCUT SCH (15:49)
[2020-09-12] MEDS: NICOTINE 14 MG/24 HR PATCH TRANSDERM SCH (16:33)
[2020-09-12] MEDS: ONDANSETRON 4 MG/2 ML VIAL IV PRN ×2 (16:34→20:27)
[2020-09-12] MEDS: ROSUVASTATIN 10 MG TABLET PO SCH (20:26)
[2020-09-12] MEDS: MAGNESIUM OXIDE 400 MG TABLET PO SCH (20:26)
[2020-09-12] MEDS: POTASSIUM CHLORIDE 20 MEQ TABLET PO SCH (20:26)
[2020-09-12] MEDS: ASPIRIN EC 81 MG TABLET PO SCH (20:26)
[2020-09-13] MEDS: SODIUM CHLOR 0.9% KCL 20 MEQ 20 MEQ/1,000 ML BAG IV SCH ×3 (00:55→12:02)
[2020-09-13] MEDS: ACETAMINOPHEN 325 MG TABLET PO PRN ×3 (03:36→12:00)
[2020-09-13 06:37] LABS: Basophils % 0.1 % (0.0-0.8); Eosinophils % 0.3 % (0.00-10.9); Hematocrit 29.9 VOL% (35.7-47.0); Immature Granulocytes % 0.5 %; Immature Granulocytes Absolute 0.04 #; Lymphocytes # 0.8 10*3/uL (1.4-4.0); Lymphocytes % 11.2 % (21.3-54.2); Mean Corpuscular HGB Conc 33.4 GM/DL (32-36); Mean Corpuscular Volume 93.7 FL (87-102); Mean Platelet Volume 9.9 FL (9.6-12.0); Monocytes % 11.5 % (1.7-12.7); Neutrophils % 76.4 % (38.7-73.9); Platelet Count 139 T/CUMM (130-400); Red Blood Count 3.19 MC/CUMM (3.8-5.5); Red Cell Distribution Width 12.8 % (9.3-17.3)
[2020-09-13 06:40] LABS: Calcium 7.8 MG/DL (8.5-10.1); Osmolality,Calculated 277.7 MOS/KG (273-304); Potassium 3.8 MMOL/L (3.5-5.1)
[2020-09-13 06:44] LABS: White Blood Count 7.4 T/CUMM (4-12)
[2020-09-13 06:52] LABS: Band Neutrophils 2 % (0-10); Lymphocytes 7 % (20-55); Segmented Neutrophils 89 % (50-85); Total Cells Counted 100
[2020-09-13 06:53] LABS: Platelet Estimate Normal
[2020-09-13] MEDS: PANTOPRAZOLE 40 MG TABLET PO SCH (09:12)
[2020-09-13] MEDS: METOPROLOL TARTRATE 25 MG TABLET PO SCH ×2 (09:12→21:48)
[2020-09-13] MEDS: NICOTINE 14 MG/24 HR PATCH TRANSDERM SCH (09:13)
[2020-09-13] MEDS ORDERED: CYCLOBENZAPRINE 10 MG TABLET PO PRN (13:52)
[2020-09-13] MEDS: SODIUM CHLOR 0.45% KCL 20 MEQ 20 MEQ/1,000 ML BAG IV SCH (15:05)
[2020-09-13] MEDS: cefTRIAXone 1,000 MG in SODIUM CHLORIDE 0.9% 100 ML IV SCH (15:06)
[2020-09-13] MEDS: ENOXAPARIN 40 MG/0.4 ML SYRINGE SUBCUT SCH (15:08)
[2020-09-13] MEDS: oxyCODONE IR 5 MG TABLET PO PRN (15:11)
[2020-09-13] MEDS: ASPIRIN EC 81 MG TABLET PO SCH (21:48)
[2020-09-13] MEDS: MAGNESIUM OXIDE 400 MG TABLET PO SCH (21:48)
[2020-09-13] MEDS: ROSUVASTATIN 10 MG TABLET PO SCH (21:48)
[2020-09-13] MEDS: POTASSIUM CHLORIDE 20 MEQ TABLET PO SCH (21:48)
[2020-09-14] MEDS: SODIUM CHLOR 0.45% KCL 20 MEQ 20 MEQ/1,000 ML BAG IV SCH ×2 (01:41→10:45)
[2020-09-14] MEDS: oxyCODONE IR 5 MG TABLET PO PRN (05:07)
[2020-09-14 08:18] VITALS: BP 108/41
[2020-09-14 08:30] LABS: Basophils % 0.3 % (0.0-0.8); Eosinophils # 0.1 10*3/uL (0.0-0.87); Eosinophils % 0.8 % (0.00-10.9); Hematocrit 32.7 VOL% (35.7-47.0); Immature Granulocytes % 0.6 %; Immature Granulocytes Absolute 0.04 #; Lymphocytes # 1.1 10*3/uL (1.4-4.0); Lymphocytes % 16.9 % (21.3-54.2); Mean Corpuscular HGB Conc 33.6 GM/DL (32-36); Mean Corpuscular Volume 92.9 FL (87-102); Mean Platelet Volume 10.1 FL (9.6-12.0); Monocytes % 12.4 % (1.7-12.7); Platelet Count 157 T/CUMM (130-400); Red Blood Count 3.52 MC/CUMM (3.8-5.5); Red Cell Distribution Width 13.2 % (9.3-17.3); White Blood Count 6.6 T/CUMM (4-12)
[2020-09-14 08:43] LABS: Calcium 8.5 MG/DL (8.5-10.1); Potassium 4.7 MMOL/L (3.5-5.1)
[2020-09-14] MEDS: PANTOPRAZOLE 40 MG TABLET PO SCH (09:08)
[2020-09-14] MEDS: NICOTINE 14 MG/24 HR PATCH TRANSDERM SCH (09:08)
[2020-09-14] MEDS: METOPROLOL TARTRATE 25 MG TABLET PO SCH (09:08)
== END 2020-09-14 11:22 | disposition home or self-care (01) | DRG 683 ==
LOC: EDUNIT# → EDBD → N.ED 11:09 → SUATTDRO 14:10 → N.EDINP 14:10 → N.TELES 14:51
PROVIDERS: ADMIT Phlebology; ATTEND Internal Medicine